=== PATIENT | female | born 1980 | race Caucasian/White ===

== ENCOUNTER → 2018-02-06 | Outpatient (CLI) | payer MEDICAID | END | disposition home or self-care (01) | LOC: CFH 14:46 | PROVIDERS: ATTEND Nurse Practitioner | DX: M50.30 Other cervical disc degeneration, unspecified cervical region (principal) | CPT/HCPCS: 72141 ==

== ENCOUNTER 2019-03-11 11:24 | Observation (INO) | payer MEDICAID ==
[~2019-03-11] VITALS: Ht 167.6 cm; Wt 113.3 kg
[~2019-03-11 11:24] MED LIST: None per pt.; PROPOFOL 10 MG/ML, 50ML ONE
[2019-03-11] MEDS ORDERED: LACTATED RINGERS 1,000 ML IV SCH (11:29)
[2019-03-11] MEDS ORDERED: ACETAMINOPHEN 500 MG TABLET PO STA (11:30)
[2019-03-11] MEDS ORDERED: DIAZEPAM 5 MG TABLET PO STA (11:30)
[2019-03-11] MEDS ORDERED: SCOPOLAMINE PATCH, 1.5MG PATCH.TD72 TD STA (11:30)
[2019-03-11 11:46] VITALS: BP 122/86
[2019-03-11 12:38] LABS: HCG UR SG 1.027 (1.003-1.030)
[2019-03-11] MEDS ORDERED: MIDAZOLAM 1 MG/ML, 2ML ONE (13:04)
[2019-03-11] MEDS ORDERED: NEOSTIGMINE 1 MG/ML, 10ML ONE (13:07)
[2019-03-11] MEDS ORDERED: ONDANSETRON 2MG/ML, 2ML ONE (13:07)
[2019-03-11] MEDS ORDERED: GLYCOPYRROLATE 0.2MG/1ML, 5ML ONE (13:07)
[2019-03-11] MEDS ORDERED: SUCCINYLCHOLINE 20 MG/ML, 10ML ONE (13:07)
[2019-03-11] MEDS ORDERED: CEFAZOLIN 1,000 MG ONE (13:07)
[2019-03-11] MEDS ORDERED: ROCURONIUM 10MG/ML,5ML ONE (13:07)
[2019-03-11] MEDS ORDERED: LIDOCAINE 4%, 4 ML SYR/CANN TP ONE (13:07)
[2019-03-11] MEDS ORDERED: DEXAMETHASONE 4 MG/ML, 1ML ONE (13:07)
[2019-03-11] MEDS ORDERED: PROPOFOL 10 MG/ML, 20ML ONE (13:07)
[2019-03-11] MEDS ORDERED: HYDROmorphone 2 MG/ML, 1ML ONE (14:50)
[2019-03-11] MEDS ORDERED: LABETALOL 5MG/ML, 20ML IV PRN (15:00)
[2019-03-11] MEDS ORDERED: HYDROmorphone 2 MG/ML, 1ML IVPush PRN (15:00)
[2019-03-11] MEDS ORDERED: ONDANSETRON 2MG/ML, 2ML IV PRN ×2 (15:00→18:00)
[2019-03-11] MEDS ORDERED: OXYcodone 5 MG/5 ML ORAL.SOL UDC PO PRN (15:00)
[2019-03-11] MEDS ORDERED: LORazepam 2 MG/ML, 1ML IVPush PRN (15:00)
[2019-03-11] MEDS ORDERED: FENTANYL PF 100 MCG/2ML IV PRN (15:00)
[2019-03-11] MEDS ORDERED: MEPERIDINE/PF 25MG/ML,1ML IVPush PRN (15:00)
[2019-03-11] MEDS ORDERED: ALBUTEROL/IPRATROPIUM 2.5MG/0.5MG, 3 ML NPPB PRN (15:00)
[2019-03-11] MEDS ORDERED: PROMETHAZINE 25 MG SUPP PR PRN (15:00)
[2019-03-11] MEDS ORDERED: ONDANSETRON ODT 8 MG PO PRN (15:00)
[2019-03-11] MEDS ORDERED: PROMETHAZINE 25 MG/ML, 1ML IV PRN (15:00)
[2019-03-11] MEDS ORDERED: FENTANYL PF 100 MCG/2ML ONE ×4 (15:04→16:26)
[2019-03-11] MEDS ORDERED: SUGAMMADEX 200 MG/2 ML IVPush ONE (15:38)
[2019-03-11] MEDS ORDERED: BUPIVACAINE/PF 0.5% ONE (15:54)
[2019-03-11] MEDS ORDERED: OXYcodone 5 MG/5 ML ORAL.SOL UDC ONE (16:26)
[2019-03-11] MEDS ORDERED: hydrALAzine 20 MG/ML, 1ML ONE (16:43)
[2019-03-11] MEDS: hydrALAzine 20 MG/ML, 1ML IV PRN ×2 (16:53→17:32)
[2019-03-11] MEDS ORDERED: HYDROmorphone 2 MG/ML, 1ML IV PRN (18:00)
[2019-03-11] MEDS: KETOROLAC 30 MG/1 ML IV SCH ×2 (18:42→23:57)
[2019-03-11] MEDS ORDERED: CEFAZOLIN PMX 2GM/50ML 50 ML IVPB ONE (21:00)
[2019-03-11] MEDS ORDERED: ZOLPIDEM 5MG TABLET PO PRN (21:00)
[2019-03-11] MEDS: SIMETHICONE 80 MG CHEW TAB PO SCH (21:07)
[2019-03-11] MEDS: D5%-LACTATED RINGERS 1,000 ML IV SCH (21:08)
[2019-03-11] MEDS: OXYcodone 5 MG/5 ML ORAL.SOL UDC PO PRN (21:18)
[2019-03-11 21:57] VITALS: BP 162/84
[2019-03-12] MEDS: D5%-LACTATED RINGERS 1,000 ML IV SCH (05:49)
[2019-03-12] MEDS: KETOROLAC 30 MG/1 ML IV SCH ×2 (05:49→12:04)
[2019-03-12 08:21] VITALS: BP 128/68
[2019-03-12] MEDS ORDERED: D5%-LACTATED RINGERS 1,000 ML IV SCH (09:22)
[2019-03-12] MEDS: SIMETHICONE 80 MG CHEW TAB PO SCH (10:50)
[2019-03-12] MEDS: OXYcodone 5 MG/5 ML ORAL.SOL UDC PO PRN (13:15)
[2019-03-12] MEDS ORDERED: OXYC5CAP2 PO (13:55)
[2019-03-12] MEDS ORDERED: IBUP200T49 PO (13:56)
[2019-03-12] MEDS ORDERED: IBUPROFEN 600 MG TABLET PO SCH (18:00)
== END 2019-03-12 14:01 | disposition home or self-care (01) ==
LOC: OUT 11:24 → EDSTATUS 13:45 → 3WST 17:50 → OUT 18:01 → DCLOUNGE 03-12 13:55
PROVIDERS: ADMIT Specialist; ATTEND Specialist
DX: D25.9 Leiomyoma of uterus, unspecified (principal); N92.0 Excessive and frequent menstruation with regular cycle; I10 Essential (primary) hypertension; F17.210 Nicotine dependence, cigarettes, uncomplicated; Z91.018 Allergy to other foods
CPT/HCPCS: 36415; 58180; 81025; 85014; 85018; 88307; 96365; 96375; 96376; G0378; J0330; J0360; J0690; J1100; J1170; J1885; J2250; J2405; J2704; J2710; J3010; J7120; J7121; S0020

== ENCOUNTER → 2019-05-07 | Outpatient (CLI) | payer MEDICAID ==
[~2019-05-07] MED LIST changes: +IBUP200T49 PO; +OMNIPAQUE 350 MG/ML, 100ML BOTTLE ONE; +OXYC5CAP2 PO; -PROPOFOL 10 MG/ML, 50ML ONE
== END | disposition home or self-care (01) ==
LOC: CFH 08:00
PROVIDERS: ATTEND Nurse Practitioner
DX: R10.11 Right upper quadrant pain (principal); R19.4 Change in bowel habit; M47.816 Spondylosis without myelopathy or radiculopathy, lumbar region; R16.1 Splenomegaly, not elsewhere classified; J98.11 Atelectasis; Z90.49 Acquired absence of other specified parts of digestive tract
CPT/HCPCS: 74177; Q9967

== ENCOUNTER 2019-09-29 10:21 | Outpatient (CLI) | payer MEDICAID ==
[~2019-09-29 10:21] MED LIST changes: -OMNIPAQUE 350 MG/ML, 100ML BOTTLE ONE
[2019-09-29] MEDS ORDERED: DEXAMETHASONE 4 MG/ML, 5ML ONE (15:01)
== END 2019-09-29 23:59 | disposition home or self-care (01) ==
LOC: CFH 10:21
PROVIDERS: ATTEND Nurse Practitioner
DX: Z02.9 Encounter for administrative examinations, unspecified (principal)
CPT/HCPCS: J1100